=== PATIENT | male | born 2000 | race Caucasian/White ===

== ENCOUNTER 2023-08-16 21:14 | Emergency (ER) | payer OTHER ==
[~2023-08-16] VITALS: Ht 185.4 cm; Wt 122.7 kg
[2023-08-16 21:35] VITALS: BP 142/91; TEMP 98.8
[2023-08-16 22:34] VITALS: PULSE 78
== END 2023-08-16 22:35 | disposition home or self-care (01) ==
LOC: COL.ER 21:14
DX: S01.111A Laceration without foreign body of right eyelid and periocular area, initial encounter (principal); W21.19XA Struck by other bat, racquet or club, initial encounter; Y93.73 Activity, racquet and hand sports